=== PATIENT | female | born 1955 | race Caucasian/White ===

== ENCOUNTER 2021-05-06 15:43 | Emergency (ER) | payer MEDICAID, SELFPAY ==
[2021-05-06 15:49] VITALS: PULSE 92; RESP 16; TEMP 36.7; O2SAT 100
--- NOTE | 2021-05-06 17:32 | ED.EPISTAXIS ---
HPI - Epistaxis General Chief complaint: Epistaxis Stated complaint: Nose Bleeding Time Seen by Provider: 05/06/21 17:32 Source: patient and family Mode of arrival: ambulatory Limitations: no limitations History of Present Illness HPI Narrative: Patient is a 65-year-old female who presents for evaluation of nosebleed. Patient states that she was outside, when she rubbed her nose and suddenly her nose began to bleed. Mostly out of the left nostril. Patient denies any head trauma. She is on any anticoagulation. No shortness of breath or difficulty breathing. Patient states it was bleeding over the course of 4 hours and would not stop which is why they come to the emergency department. At the time of my assessment, patient has a nasal clamp on, there is no active bleeding. No lightheadedness or dizziness. No palpitations or chest pain. Patient son serves as development spec. Review of Systems Review of Systems: Narrative: CONSTITUTIONAL: Denies fever HEENT: Reports epistaxis CARDIOVASCULAR: Denies chest pain RESPIRATORY: Denies cough or dyspnea. GASTROINTESTINAL: Denies abdominal pain SKIN: Denies rash MUSCULOSKELETAL: Denies back pain NEUROLOGIC: Denies headache [facility] Social History Social History (Updated 05/06/21 @ 17:53 by Dina Luz MD) Smoking status: Never smoker Alcohol intake: never Substance use: never Living arrangements: with family Gender identity (if verbalized by the patient): Female Exam Narrative: Exam Narrative: GENERAL: Awake, alert, conversant HEAD: Normocephalic, atraumatic. EYES: PERRLA and EOMI. ENT: Nares clear, no rhinorrhea. Dried blood present at the left naris, no active bleeding. Mucous membranes moist. No blood clots are present. NECK: Supple. CHEST: No respiratory distress, breathing even and non labored HEART: Regular rate, sinus rhythm ABDOMEN:Non distended, non tender EXTREMITIES: Normal range of motion. No edema. SKIN: Warm, dry, no rash. NEURO:No focal deficits. Alert and oriented x3 Course Vital Signs Vital signs: Vital Signs Temperature 36.7 C 05/06/21 15:49 Pulse Rate 92 05/06/21 15:49 Respiratory Rate 16 05/06/21 15:49 Pulse Oximetry 100 05/06/21 15:49 Temperature 36.7 C 05/06/21 15:49 Pulse Rate 92 05/06/21 15:49 Respiratory Rate 16 05/06/21 15:49 Pulse Oximetry 100 05/06/21 15:49 MDM - Epistaxis MDM Narrative Medical decision making narrative: Patient presenting for evaluation of left anterior epistaxis. At the time of my assessment there is no active bleeding. Afrin was applied to the left naris. Clamp was reapplied. Patient was monitored in the ER and had no recurrent epistaxis. Likely anterior epistaxis given no brisk bleeding. No prodromal symptoms such as shortness of breath, lightheadedness or dizziness. Vital signs are stable. Nothing to be suggestive of severe hemorrhage warranting IV blood work. Pt reassessed and no recurrent bleeding. PT ambulatory with a narrow based, steady gait. Patient will be discharged home with close return precautions. Differential Diagnosis Differential diagnosis: Likely anterior epistaxis and posterior epistaxis Discharge Plan Discharge Clinical Impression: Epistaxis Patient Disposition: Home, Self-Care Condition: Stable Instructions: Nosebleed (ED) Additional Instructions: Please contact your primary care physician for follow up from this visit. If you experience worsening pain, vomiting that does not stop, bleeding complications, chest pain, shortness of breath, inability to tolerate your medications please return for reassessment. Take any prescribed medications as directed Stay well-hydrated For fever and pain, you may take Tylenol 500 mg - 1000 mg every 8 hours, and Ibuprofen 400 mg every 6-8 hours as needed for pain. These medications can safely be taken together as long as you do not have a known allergy to them. Follow-up/Referrals: Fadi Dash MD [
== END 2021-05-06 18:10 | disposition home or self-care (01) ==
PROVIDERS: Emergency Provider Emergency Medicine; PCP Emergency Medicine
DX: R04.0 Epistaxis (principal)
CPT/HCPCS: 99282; A9270

== ENCOUNTER → 2021-05-08 14:04 | Outpatient (CLI) | payer MEDICAID, SELFPAY ==
--- NOTE | ~2021-05-08 | MM_ITS ---
EXAMINATION: MM screening luis BI w [facility] HISTORY: Screening TECHNIQUE: Craniocaudal and mediolateral oblique 3-D tomosynthesis images were obtained and synthetic 2-D images were generated. CAD analysis was submitted and interpreted. COMPARISON: No prior mammogram is available for comparison at this institution. BREAST PARENCHYMAL COMPOSITION: The breasts are heterogeneously dense, which may obscure small masses . FINDINGS: There is no evidence of suspicious mass, calcification, or architectural distortion to sugg est malignancy in either breast. There has been no suspicious interval change. IMPRESSION: 1. No mammographic evidence of malignancy. 2. Recommend routine screening mammography in one year. BI-RADS Category 1: Negative Reviewed, dictated and finalized at location A.
== END ==
PROVIDERS: Visit Provider Emergency Medicine
DX: Z12.31 Encounter for screening mammogram for malignant neoplasm of breast (principal)
CPT/HCPCS: 77063; 77067

== ENCOUNTER → 2022-09-17 12:18 | Outpatient (CLI) | payer MEDICAID, SELFPAY ==
--- NOTE | ~2022-09-17 | MM_ITS ---
EXAMINATION: MM screening luis BI w [facility] HISTORY: Screening mammogram TECHNIQUE: Craniocaudal and mediolateral oblique 3-D tomosynthesis images were obtained and synthetic 2-D images were generated. CAD analysis was submitted and interpreted. COMPARISON: 05/08/2021 bilateral screening mammogram BREAST PARENCHYMAL COMPOSITION: The breasts are heterogeneously dense, which may obscure small masses . FINDINGS: There is no evidence of suspicious mass, calcification, or architectural distortion to sugg est malignancy in either breast. There has been no suspicious interval change. IMPRESSION: 1. No mammographic evidence of malignancy. 2. Recommend routine screening mammography in one year. BI-RADS Category 1: Negative Reviewed, dictated and finalized at location A. [employer]
== END ==
PROVIDERS: PCP Emergency Medicine; Visit Provider Emergency Medicine
DX: Z12.31 Encounter for screening mammogram for malignant neoplasm of breast (principal)
CPT/HCPCS: 77063; 77067

== ENCOUNTER 2024-06-26 13:22 | Outpatient (CLI) | payer MEDICAID, SELFPAY ==
--- NOTE | ~2024-06-26 | MM_ITS ---
EXAMINATION: MM screening luis BI w [facility] HISTORY: Screening TECHNIQUE: Craniocaudal and mediolateral oblique 3-D tomosynthesis images were obtained and synthetic 2-D images were generated. CAD analysis was submitted and interpreted. COMPARISON: Comparison to multiple prior studies sequentially, with oldest reviewed study dated 05/08. BREAST PARENCHYMAL COMPOSITION: Dense: The breasts are heterogeneously dense, which may obscure small masses FINDINGS: There is no evidence of suspicious mass, calcification, or architectural distortion to sugg est malignancy in either breast. There has been no suspicious interval change. IMPRESSION: 1. No mammographic evidence of malignancy. 2. Recommend routine screening mammography in one year. BI-RADS Category 1: Negative Reviewed, dictated and finalized at location B.
== END 2024-06-26 13:23 ==
PROVIDERS: PCP Emergency Medicine; Visit Provider Emergency Medicine
DX: Z12.31 Encounter for screening mammogram for malignant neoplasm of breast (principal)
CPT/HCPCS: 77063; 77067

== ENCOUNTER 2024-10-02 08:12 | Outpatient (CLI) | payer MEDICAID, SELFPAY ==
--- NOTE | ~2024-10-02 | US_ITS ---
EXAMINATION: US right upper quadrant DATE: 10/02/2024 08:42 INDICATION: Abnormal liver function tests. TECHNIQUE: Multiple grayscale and Doppler ultrasound images of the abdomen were obtained. COMPARISON: None FINDINGS: The visualized portions of the head and body of the pancreas are normal. There is diffuse h epatic steatosis. There is normal flow in main portal vein. The gallbladder is normal in size and con tains gallstones. No gallbladder wall thickening or sonographic Zabala sign. The common duct is terese l and measures 2 mm. IMPRESSION: 1. Diffuse hepatic steatosis. 2. Cholelithiasis. Reviewed, dictated and finalized at location A. [employer]
--- NOTE | ~2024-10-02 | US_ITS ---
EXAMINATION: US thyroid DATE: 10/02/2024 08:41 INDICATION: Abnormal thyroid serum levels TECHNIQUE: Multiple ultrasound images of the thyroid were obtained. COMPARISON: None. FINDINGS: The right thyroid lobe measures 5.1 x 1.6 x 1.5 cm. The left thyroid lobe measures 5.3 x 1.4 x 2.0 c m. Thyroid isthmus measures 5 mm in thickness. There is heterogeneous echogenicity with coarsened ech otexture and increased vascular flow diffusely throughout both the left and right thyroid lobes sugge stive of thyroiditis. 9 mm solid isoechoic wider than tall nodule with smooth margins and without ech ogenic foci in the left thyroid lobe (TI-RADS 3, mildly suspicious , FNA if >=2.5 cm, annual followup is >=1.5 cm). IMPRESSION: 1. Mildly enlarged thyroid with diffuse heterogeneous echogenicity with coarsened echotexture and dif fuse increased vascular flow suggestive of thyroiditis. 2. 9 mm TI-RADS 3 left thyroid nodule which remains below size criteria for either biopsy or follow-u p. Reviewed, dictated and finalized at location B. [employer] IMPRESSION: 1. Mildly enlarged thyroid with diffuse heterogeneous echogenicity with coarsen ed echotexture and diffuse increased vascular flow suggestive of thyroiditis. 2. 9 mm TI-RADS 3 left thyroid nodule which remains below size criteria for eit her biopsy or follow-up.
== END 2024-10-02 08:13 | disposition home or self-care (01) ==
LOC: ANHIMG 08:14
PROVIDERS: PCP Emergency Medicine; Visit Provider Emergency Medicine
DX: R94.6 Abnormal results of thyroid function studies (principal); R74.01 Elevation of levels of liver transaminase levels; E04.1 Nontoxic single thyroid nodule; K80.20 Calculus of gallbladder without cholecystitis without obstruction; K76.0 Fatty (change of) liver, not elsewhere classified
CPT/HCPCS: 76536; 76705